=== PATIENT | female | born 1995 | race Caucasian/White ===

== ENCOUNTER 2016-07-24 23:35 | Emergency (ER) | payer OTHER ==
[~2016-07-24] VITALS: Ht 152.4 cm; Wt 57.6 kg
[~2016-07-24 23:35] MED LIST: CIPRO500 MG PO
[2016-07-25 00:34] LABS: HEMATOCRIT 34.2 % (36.0-46.0); MCH 32.6 PG (29.0-34.0); MCHC 34.8 G/DL (30.0-36.0); MCV 93.7 FL (83-99); MEAN PLAT.VOLUME 10.7 uM^3 (9.5-12.4); PLATELET COUNT 191 K/uL (156-360); RBC DIS.WIDTH-CV 11.8 % (11.8-14.6); RBC DIS.WIDTH-SD 39.2 % (39-53); RED BLOOD COUNT 3.65 M/uL (3.80-5.20); WHITE BLOOD COUNT 6.9 K/uL (4.1-10.2)
[2016-07-25 00:45] LABS: CHLORIDE 106 mEq/L (99-109); GLUCOSE 82 mg/dL (70-99); POTASSIUM 3.6 mEq/L (3.7-5.4); SODIUM 134 mEq/L (136-147)
[2016-07-25 00:47] LABS: ANION GAP 11 MEQ/L (2-14)
[2016-07-25 00:49] LABS: GFR ESTIMATE (CALCULATED) > 59 mL/min/
[2016-07-25 00:50] LABS: UREA NITROGEN (BUN) 12 mg/dL (9-23)
[2016-07-25 01:19] LABS: QUANTITATIVE HCG 27139.6 MIU/ML
[2016-07-25 01:41] LABS: BILIRUBIN NEGATIVE; BLOOD NEGATIVE; COLOR YELLOW ((YELLOW)); GLUCOSE (STRIP) NEGATIVE; KETONES >=80; LEUKOCYTES NEGATIVE; NITRITE NEGATIVE; PROTEIN (STRIP) NEGATIVE; SPECIFIC GRAVITY 1.014 (1.000-1.030); UROBILINOGEN 0.2 MG/DL (0.2-1.0)
[2016-07-25 01:42] LABS: ADD MIUA? NO; UCUL ADDED? NO
[2016-07-25] MEDS ORDERED: ZOFRAN ODT4 MG PO (01:45)
[2016-07-25 01:54] VITALS: BP 119/64
== END 2016-07-25 02:22 | disposition home or self-care (01) ==
LOC: EME 23:35 → RME 23:35
PROVIDERS: Physician Assistant
DX: O21.9 Vomiting of pregnancy, unspecified (principal); E86.0 Dehydration; Z3A.01 Less than 8 weeks gestation of pregnancy; Z87.440 Personal history of urinary (tract) infections; Z88.2 Allergy status to sulfonamides
CPT/HCPCS: 80048; 81003; 84702; 85027; 99281; 99285; J2405

== ENCOUNTER 2016-09-02 17:23 | Emergency (ER) | payer OTHER ==
[~2016-09-02] VITALS: Ht 149.9 cm; Wt 56.7 kg
[~2016-09-02 17:23] MED LIST changes: +ZOFRAN ODT4 MG PO
[2016-09-02 18:12] LABS: HEMATOCRIT 34.3 % (36.0-46.0); MCH 32.4 PG (29.0-34.0); MCHC 34.7 G/DL (30.0-36.0); MCV 93.5 FL (83-99); MEAN PLAT.VOLUME 9.7 uM^3 (9.5-12.4); PLATELET COUNT 249 K/uL (156-360); RBC DIS.WIDTH-CV 11.7 % (11.8-14.6); RBC DIS.WIDTH-SD 38.6 % (39-53); RED BLOOD COUNT 3.67 M/uL (3.80-5.20); WHITE BLOOD COUNT 9.6 K/uL (4.1-10.2)
[2016-09-02 19:55] LABS: ADD MIUA? YES; BILIRUBIN NEGATIVE; BLOOD LARGE; GLUCOSE (STRIP) NEGATIVE; KETONES NEGATIVE; LEUKOCYTES SMALL; NITRITE NEGATIVE; PROTEIN (STRIP) 100; SPECIFIC GRAVITY 1.014 (1.000-1.030); UROBILINOGEN 0.2 MG/DL (0.2-1.0)
[2016-09-02 19:57] LABS: COLOR RED ((YELLOW))
[2016-09-02 20:13] LABS: RED BLOOD CELLS TNTC /HPF (0-5)
[2016-09-02 20:19] LABS: BACTERIA 1+ /HPF; CRYSTALS PRESENT; EPITHELIAL CELLS 1+ /HPF; MUCUS NONE SEEN /LPF; UCUL ADDED? NO
[2016-09-02 20:20] LABS: AMORPHOUS PHOSPHATE CRYSTALS 1+
[2016-09-02 22:10] VITALS: BP 114/94
[2016-09-03 13:12] LABS: NEISSERIA GONORRHOEAE NEGATIVE
[2016-09-03 13:14] LABS: CHLAMYDIA TRACHOMATIS NEGATIVE
== END 2016-09-02 22:11 | disposition home or self-care (01) ==
LOC: EME 17:23
PROVIDERS: Nurse Practitioner Family
DX: N93.9 Abnormal uterine and vaginal bleeding, unspecified (principal); Z87.891 Personal history of nicotine dependence
CPT/HCPCS: 76801; 81003; 84702; 85027; 87210; 87491; 87591; 99281; 99285

== ENCOUNTER 2016-09-12 04:15 | Day surgery (SDC) | payer OTHER ==
[~2016-09-12] VITALS: Ht 149.9 cm; Wt 56.8 kg
[2016-09-12 05:49] LABS: CHLORIDE 107 mEq/L (99-109); POTASSIUM 3.6 mEq/L (3.7-5.4); SODIUM 138 mEq/L (136-147)
[2016-09-12 05:50] LABS: EOSINOPHIL (%) 0.6 % (0-5); EOSINOPHIL COUNT 0.1 K/uL (0-0.3); HEMATOCRIT 28.2 % (36.0-46.0); IMMATURE GRANULOCYTE (%) 1.2 % (0.0-0.7); IMMATURE GRANULOCYTE COUNT 1.1 K/uL; LYMPHOCYTE COUNT 1.7 K/uL (1.0-2.8); MCH 32.4 PG (29.0-34.0); MCHC 35.5 G/DL (30.0-36.0); MCV 91.3 FL (83-99); MONOCYTE (%) 12.6 % (3-12); MONOCYTE COUNT 1.2 K/uL (0-0.8); NEUTROPHIL (%) 67.3 % (45-76); NEUTROPHIL COUNT 6.4 K/uL (1.8-6.4); PLATELET COUNT 205 K/uL (156-360); RBC DIS.WIDTH-CV 11.4 % (11.8-14.6); RBC DIS.WIDTH-SD 36.2 % (39-53); RED BLOOD COUNT 3.09 M/uL (3.80-5.20); WHITE BLOOD COUNT 9.6 K/uL (4.1-10.2)
[2016-09-12 05:51] LABS: GLUCOSE 97 mg/dL (70-99)
[2016-09-12 05:52] LABS: ANION GAP 9 MEQ/L (2-14)
[2016-09-12 05:53] LABS: TOTAL BILIRUBIN 0.3 mg/dL (0.0-1.0)
[2016-09-12 05:54] LABS: ALKALINE PHOSPHATASE 59 IU/L (3-129)
[2016-09-12 05:55] LABS: GFR ESTIMATE (CALCULATED) > 59 mL/min/
[2016-09-12 05:56] LABS: UREA NITROGEN (BUN) 8 mg/dL (9-23)
[2016-09-12 05:58] LABS: ADD MIUA? YES; BILIRUBIN NEGATIVE; BLOOD SMALL; COLOR YELLOW ((YELLOW)); GLUCOSE (STRIP) NEGATIVE; KETONES NEGATIVE; LEUKOCYTES TRACE; NITRITE NEGATIVE; PROTEIN (STRIP) NEGATIVE; SPECIFIC GRAVITY 1.014 (1.000-1.030); UROBILINOGEN 0.2 MG/DL (0.2-1.0)
[2016-09-12 05:58] LABS: LIPASE 19 U/L (1.0-51.0)
[2016-09-12 06:04] LABS: QUANTITATIVE HCG 282.3 MIU/ML
[2016-09-12 06:05] LABS: BACTERIA NONE SEEN /HPF; EPITHELIAL CELLS RARE /HPF; MUCUS TRACE /LPF; RED BLOOD CELLS 0-5 /HPF (0-5); UCUL ADDED? NO; WHITE BLOOD CELLS 0-5 /HPF (0-5)
[2016-09-12 06:17] LABS: INTER. NORMALIZED RATIO 1.1; PROTHROMBIN TIME 11.3 (9.2-11.2)
[2016-09-12] MEDS ORDERED: IBUPROFEN800 MG PO (10:39)
[2016-09-12] MEDS ORDERED: DOXYCYCLINE HY100 M3 PO (10:39)
[2016-09-12 12:01] VITALS: BP 100/56
[2016-09-15 13:40] LABS: CHLAMYDIA TRACHOMATIS INVALID; NEISSERIA GONORRHOEAE INVALID
== END 2016-09-12 14:29 | disposition home or self-care (01) ==
LOC: EME 04:15 → SDC 10:03 → EME 10:03 → 2SOUTH 10:27 → 2EASTP 11:38
PROVIDERS: Emergency Medicine
PROC: 10D17ZZ Extraction of Products of Conception, Retained, Via Natural or Artificial Opening (ICD-10-PCS; principal; 2016-09-12)
DX: O03.0 Genital tract and pelvic infection following incomplete spontaneous abortion (principal); Z91.19 Patient's noncompliance with other medical treatment and regimen
CPT/HCPCS: 71010; 76856; 80053; 81003; 83605; 83690; 84702; 85025; 85610; 85730; 86900; 86901; 87040; 87076; 87185; 87210; 87491; 87591; 87801; 88305; 99281; 99285; G0378; J0295; J1170; J1885; J2250; J3010; J7050; J7120

== ENCOUNTER 2017-07-17 19:44 | Emergency (ER) | payer OTHER ==
[~2017-07-17] VITALS: Ht 152.4 cm; Wt 71.8 kg
[~2017-07-17 19:44] MED LIST changes: +DOXYCYCLINE HY100 M3 PO; +IBUPROFEN800 MG PO
[2017-07-17 20:14] LABS: APPEARANCE SL.HAZY ((CLEAR)); BILIRUBIN NEGATIVE; BLOOD NEGATIVE; COLOR YELLOW ((YELLOW)); GLUCOSE (STRIP) 150; KETONES NEGATIVE; LEUKOCYTES TRACE; NITRITE NEGATIVE; PROTEIN (STRIP) NEGATIVE
[2017-07-17 20:18] LABS: BACTERIA RARE /HPF; EPITHELIAL CELLS 1+ /HPF; MUCUS NONE SEEN /LPF; RED BLOOD CELLS 0-5 /HPF (0-5); UCUL ADDED? NO; WHITE BLOOD CELLS 0-5 /HPF (0-5)
[2017-07-17 20:24] LABS: HEMATOCRIT 32.6 % (36.0-46.0); HEMOGLOBIN 11.3 G/DL (11.9-15.5); MCH 32.3 PG (29.0-34.0); MCHC 34.7 G/DL (30.0-36.0); MCV 93.1 FL (83-99); PLATELET COUNT 232 K/uL (156-360); RBC DIS.WIDTH-CV 11.9 % (11.8-14.6); RBC DIS.WIDTH-SD 40.6 % (39-53); WHITE BLOOD COUNT 7.6 K/uL (4.1-10.2)
[2017-07-17 20:32] LABS: CHLORIDE 104 mEq/L (99-109); POTASSIUM 3.5 mEq/L (3.7-5.4); SODIUM 133 mEq/L (136-147)
[2017-07-17 20:34] LABS: GLUCOSE 109 mg/dL (70-99)
[2017-07-17 20:38] LABS: CREATININE 0.7 mg/dL (0.6-1.3); GFR ESTIMATE (CALCULATED) > 59 mL/min/
[2017-07-17 20:39] LABS: UREA NITROGEN (BUN) 3 mg/dL (9-23)
[2017-07-18 02:42] LABS: TROP-I INTERPRETATION NEGATIVE; TROPONIN-I < 0.01 ng/mL (0.0-0.30)
[2017-07-18 03:32] VITALS: BP 113/60
== END 2017-07-18 03:33 | disposition home or self-care (01) ==
LOC: EME 19:44 → EXP 19:44
PROVIDERS: Nurse Practitioner Family
DX: O99.513 Diseases of the respiratory system complicating pregnancy, third trimester (principal); J90 Pleural effusion, not elsewhere classified; R00.0 Tachycardia, unspecified; Z3A.32 32 weeks gestation of pregnancy
CPT/HCPCS: 71275; 80048; 81003; 83880; 84484; 85027; 87502; 93005; 99281; 99285

== ENCOUNTER 2017-07-18 21:18 | Emergency (ER) | payer OTHER ==
[~2017-07-18] VITALS: Ht 152.4 cm; Wt 71.8 kg
[2017-07-18 21:30] VITALS: BP 114/76
[2017-07-18 21:49] LABS: HEMATOCRIT 31.5 % (36.0-46.0); HEMOGLOBIN 10.9 G/DL (11.9-15.5); MCH 32.2 PG (29.0-34.0); MCHC 34.6 G/DL (30.0-36.0); MCV 92.9 FL (83-99); PLATELET COUNT 228 K/uL (156-360); RBC DIS.WIDTH-CV 11.9 % (11.8-14.6); RBC DIS.WIDTH-SD 40.1 % (39-53); RED BLOOD COUNT 3.39 M/uL (3.80-5.20); WHITE BLOOD COUNT 5.8 K/uL (4.1-10.2)
[2017-07-18 21:58] LABS: CHLORIDE 106 mEq/L (99-109); POTASSIUM 3.5 mEq/L (3.7-5.4); SODIUM 133 mEq/L (136-147)
[2017-07-18 21:59] LABS: GLUCOSE 110 mg/dL (70-99)
[2017-07-18 22:03] LABS: CREATININE 0.6 mg/dL (0.6-1.3); GFR ESTIMATE (CALCULATED) > 59 mL/min/
[2017-07-18 22:04] LABS: UREA NITROGEN (BUN) 6 mg/dL (9-23)
== END 2017-07-19 01:24 | disposition left against medical advice (07) ==
LOC: EME 21:18
DX: R50.9 Fever, unspecified (principal); Z53.21 Procedure and treatment not carried out due to patient leaving prior to being seen by health care provider
CPT/HCPCS: 80048; 85027; 93005

== ENCOUNTER 2017-08-16 15:02 | Outpatient (CLI) | payer OTHER ==
[2017-08-16 15:34] VITALS: BP 111/72
[2017-08-16] MEDS ORDERED: PRENATAL TABLE1 EAC3 PO (15:51)
== END 2017-08-16 16:00 | disposition home or self-care (01) ==
LOC: LDRP-OP 15:02 → 2WEST 15:04 → LDRP-OP 10-05 13:01
DX: O26.893 Other specified pregnancy related conditions, third trimester (principal); Z3A.36 36 weeks gestation of pregnancy; Z87.891 Personal history of nicotine dependence
CPT/HCPCS: 59025; G0378

== ENCOUNTER 2017-09-03 23:15 | Outpatient (CLI) | payer OTHER ==
[~2017-09-03] VITALS: Ht 152.4 cm; Wt 74.8 kg
[~2017-09-03 23:15] MED LIST changes: +PRENATAL TABLE1 EAC3 PO
[2017-09-03 23:29] VITALS: BP 114/79
[2017-09-04 01:30] VITALS: BP 121/76
== END 2017-09-04 02:30 | disposition home or self-care (01) ==
LOC: LDRP-OP 23:15 → 2WEST 23:16 → LDRP-OP 10-05 17:59
DX: O47.1 False labor at or after 37 completed weeks of gestation (principal); O26.873 Cervical shortening, third trimester; Z3A.39 39 weeks gestation of pregnancy; Z87.891 Personal history of nicotine dependence
CPT/HCPCS: 59025; G0378

== ENCOUNTER 2017-09-13 07:57 | Inpatient (IN) | payer OTHER ==
[2017-09-13] VITALS (15 sets, daily range): BP systolic 96–126; BP diastolic 58–82
[~2017-09-13] VITALS: Ht 149.9 cm; Wt 78.2 kg
[2017-09-13 09:03] LABS: BASOPHIL (%) 0.2 % (0-1); EOSINOPHIL (%) 0.7 % (0-5); EOSINOPHIL COUNT 0.1 K/uL (0-0.3); HEMATOCRIT 34.3 % (36.0-46.0); HEMOGLOBIN 11.5 G/DL (11.9-15.5); IMMATURE GRANULOCYTE (%) 0.7 % (0.0-0.7); LYMPHOCYTE (%) 18.8 % (15-42); MCH 30.5 PG (29.0-34.0); MCHC 33.5 G/DL (30.0-36.0); MONOCYTE (%) 7.5 % (3-12); MONOCYTE COUNT 0.8 K/uL (0-0.8); NEUTROPHIL (%) 72.1 % (45-76); NEUTROPHIL COUNT 7.8 K/uL (1.8-6.4); PLATELET COUNT 263 K/uL (156-360); RBC DIS.WIDTH-CV 13.2 % (11.8-14.6); RBC DIS.WIDTH-SD 43.3 % (39-53); RED BLOOD COUNT 3.77 M/uL (3.80-5.20); WHITE BLOOD COUNT 10.8 K/uL (4.1-10.2)
[2017-09-13 19:06] LABS: BASE EXCESS -14.8 mEq/L (-3 to +3); BICARBONATE 18.6 mEq/L (22-26); CARBOXY HGB 0 % (0-5); METHEMOGLOBIN 1.9 % (0-1.5); PCO2 77 mm Hg (35-45)
[2017-09-13 19:10] LABS: COMMENTS - BLOOD GASES A+C+; FI02 21 %; PO2 < 32 mm Hg (80-100); pH 6.99 (7.35-7.45)
[2017-09-13 19:11] LABS: BASE EXCESS -13.7 mEq/L (-3 to +3); BICARBONATE 18.8 mEq/L (22-26); CARBOXY HGB 0.5 % (0-5); METHEMOGLOBIN 1.6 % (0-1.5)
[2017-09-13 19:12] LABS: COMMENTS - BLOOD GASES A+C+; FI02 21 %; PCO2 71 mm Hg (35-45); PO2 < 32 mm Hg (80-100); pH 7.03 (7.35-7.45)
[2017-09-13 20:08] LABS: BASOPHIL (%) 0.2 % (0-1); BASOPHIL COUNT 0.1 K/uL (0-0.1); EOSINOPHIL (%) 0 % (0-5); HEMATOCRIT 27.4 % (36.0-46.0); IMMATURE GRANULOCYTE (%) 0.5 % (0.0-0.7); LYMPHOCYTE (%) 6.1 % (15-42); LYMPHOCYTE COUNT 1.5 K/uL (1.0-2.8); MCH 30.2 PG (29.0-34.0); MCHC 32.5 G/DL (30.0-36.0); MCV 92.9 FL (83-99); MONOCYTE (%) 6.8 % (3-12); MONOCYTE COUNT 1.6 K/uL (0-0.8); NEUTROPHIL (%) 86.4 % (45-76); NEUTROPHIL COUNT 20.9 K/uL (1.8-6.4); PLATELET COUNT 237 K/uL (156-360); RBC DIS.WIDTH-CV 13.2 % (11.8-14.6); WHITE BLOOD COUNT 24.3 K/uL (4.1-10.2)
[2017-09-13 20:09] LABS: HEMOGLOBIN 8.9 G/DL (11.9-15.5); RED BLOOD COUNT 2.95 M/uL (3.80-5.20)
[2017-09-13] MEDS ORDERED: PERCOCET 5/31 TABLET PO (20:24)
[2017-09-13] MEDS ORDERED: MOTRIN800 MG PO (20:24)
[2017-09-14] VITALS (16 sets, daily range): BP systolic 98–122; BP diastolic 53–68
[2017-09-14 06:26] LABS: BASOPHIL (%) 0.1 % (0-1); EOSINOPHIL (%) 0 % (0-5); HEMATOCRIT 21.1 % (36.0-46.0); IMMATURE GRANULOCYTE (%) 0.4 % (0.0-0.7); LYMPHOCYTE (%) 7.9 % (15-42); LYMPHOCYTE COUNT 1.3 K/uL (1.0-2.8); MCH 30.3 PG (29.0-34.0); MCHC 32.7 G/DL (30.0-36.0); MCV 92.5 FL (83-99); MONOCYTE (%) 4.6 % (3-12); MONOCYTE COUNT 0.8 K/uL (0-0.8); NEUTROPHIL COUNT 14.5 K/uL (1.8-6.4); PLATELET COUNT 191 K/uL (156-360); RBC DIS.WIDTH-CV 13.5 % (11.8-14.6); RBC DIS.WIDTH-SD 45.8 % (39-53); WHITE BLOOD COUNT 16.6 K/uL (4.1-10.2)
[2017-09-14 06:27] LABS: HEMOGLOBIN 6.9 G/DL (11.9-15.5); RED BLOOD COUNT 2.28 M/uL (3.80-5.20)
[2017-09-15 07:02] VITALS: BP 100/60
[2017-09-15 07:21] LABS: HEMATOCRIT 27.5 % (36.0-46.0); MCH 29.9 PG (29.0-34.0); MCHC 32.7 G/DL (30.0-36.0); MCV 91.4 FL (83-99); PLATELET COUNT 214 K/uL (156-360); RBC DIS.WIDTH-CV 14.6 % (11.8-14.6); WHITE BLOOD COUNT 17.1 K/uL (4.1-10.2)
[2017-09-15 07:22] LABS: RED BLOOD COUNT 3.01 M/uL (3.80-5.20)
[2017-09-15 10:49] VITALS: BP 118/72
[2017-09-15 15:09] VITALS: BP 108/76
[2017-09-16 07:21] VITALS: BP 105/67
== END 2017-09-16 15:40 | disposition home or self-care (01) | DRG 765 ==
LOC: LDRP-OP 07:57 → 2WEST 07:58 → LDRP-OP 08:43 → 2WEST 18:34 → LDRP-OP 09-14 08:41 → 2WEST 09-16 15:40 → LDRP-OP 10-05 02:44
PROVIDERS: Advanced Practice Midwife; Obstetrics & Gynecology
DX: O62.1 Secondary uterine inertia (principal); O76 Abnormality in fetal heart rate and rhythm complicating labor and delivery; O71.4 Obstetric high vaginal laceration alone; O41.1230 Chorioamnionitis, third trimester, not applicable or unspecified; O75.81 Maternal exhaustion complicating labor and delivery; O99.02 Anemia complicating childbirth; D62 Acute posthemorrhagic anemia; O48.0 Post-term pregnancy; O26.873 Cervical shortening, third trimester; O66.5 Attempted application of vacuum extractor and forceps; Z87.891 Personal history of nicotine dependence; Z88.2 Allergy status to sulfonamides; Z3A.40 40 weeks gestation of pregnancy; Z37.0 Single live birth
CPT/HCPCS: 36600; 74018; 82803; 82948; 85025; 85025 91; 85027; 86850; 86900; 86901; 86920; 88307; C1755; J0295; J0690; J2175; J2274; J2405; J3010; J3105; J7050; J7120; P9016